=== PATIENT | male | born 1990 | race Caucasian/White ===

== ENCOUNTER 2016-09-17 23:42 | Emergency (ER) | payer OTHER ==
[2016-09-17 23:49] VITALS: BP 152/85
--- NOTE | 2016-09-18 00:19 | ED ---
Bite Injury/Animal - HPI Summary HPI Summary: 25M presents for potential rabies ppx. He states a couple days ago he walked into his house and say two bats that he managed to get out of the house without them touching him. Two days later he found an old bat in a different room that was not near his room. He denies getting any bites. His tetanus is up to date. He contacted the health department who told him to dispose of the bat as he did not need testing for rabies. - History of Current Complaint Chief Complaint: EDAnimalBite Stated Complaint: CONTACT WITH A BAT Time Seen by Provider: 09/17/16 23:59 Pain Intensity: 0 - Allergies/Home Medications Allergies/Adverse Reactions: Allergies Allergy/AdvReac Type Severity Reaction Status Date / Time No Known Allergies Allergy Verified 09/18/16 00:04 PMH/Surg Hx/FS Hx/Imm Hx Endocrine/Hematology History: Denies: Hx Anticoagulant Therapy Cardiovascular History: Denies: Hx Hypertension - Immunization History Date of Tetanus Vaccine: utd Date of Influenza Vaccine: none Infectious Disease History: No Infectious Disease History: Denies: Traveled Outside the [place] in Last 30 Days - Family History Known Family History: Positive: Cardiac Disease - Social History Alcohol Use: Occasionally Substance Use Type: Reports: None Smoking Status (MU): Never Smoked Tobacco Review of Systems Negative: Fever Negative: Chest Pain Negative: Shortness Of Breath Positive: Other - potential rabies exposure. Negative: Rash All Other Systems Reviewed And Are Negative: Yes Physical Exam Triage Information Reviewed: Yes Vital Signs On Initial Exam: Initial Vitals Temp Pulse Resp BP Pulse Ox 98.8 F 62 18 152/85 98 09/17/16 23:47 09/17/16 23:47 09/17/16 23:47 09/17/16 23:47 09/17/16 23:47 Vital Signs Reviewed: Yes Appearance: Positive: Well-Appearing Skin: Positive: Warm, Dry, Other - no wounds Head/Face: Positive: Normal Head/Face Inspection Eyes: Positive: Normal, Conjunctiva Clear Respiratory/Lung Sounds: Positive: Clear to Auscultation, Breath Sounds Present Cardiovascular: Positive: Normal, RRR - Yi Coma Scale Coma Scale Total: 15 Diagnostics - Vital Signs Vital Signs Temp Pulse Resp BP Pulse Ox 09/18/16 00:00 98.8 F 62 18 152/85 98 09/17/16 23:47 98.8 F 62 18 152/85 98 - Laboratory Lab Statement: Any lab studies that have been ordered have been reviewed, and results considered in the medical decision making process. Bite Injury Course/Dx - Course Course Of Treatment: 25M presents for potential rabies ppx. He states a couple days ago he walked into his house and say two bats that he managed to get out of the house without them touching him. Two days later he found an old bat in a different room that was not near his room. He denies getting any bites. His tetanus is up to date. explained being in the presence of a bat when awake does not necessity needing rabies ppx. patient understands and agrees with plan. - Diagnoses Differential Diagnosis/HQI/PQRI: Positive: Puncture, Rabies Exposure Provider Diagnosis: Exposure to bat without known bite Discharge - Discharge Plan Condition: Good Disposition: HOME Referrals: Pending Sale To [facility] [Primary Care Provider] - Additional Instructions: You do not need rabies prophylaxis Return to ED if develop any new or worsening symptoms
== END 2016-09-18 00:27 | disposition home or self-care (01) ==
LOC: ED 23:42
DX: Z20.3 Contact with and (suspected) exposure to rabies (principal)
CPT/HCPCS: 99281

== ENCOUNTER 2017-01-08 00:57 | Emergency (ER) | payer OTHER ==
[2017-01-08 06:03] LABS: Hematocrit 42 % (42-52); Hemoglobin 14.6 g/dl (14.0-18.0); Mean Corpuscular HGB Conc 35 g/dl (31-36); Mean Corpuscular Hemoglobin 31 pg (27-31); Mean Corpuscular Volume 89 fL (80-94); Mean Platelet Volume 8 um3 (7.4-10.4); Red Blood Count 4.67 10^6/ul (4.0-5.4); Red Cell Distribution Width 13 % (10.5-15)
[2017-01-08 06:14] LABS: Albumin 4.2 g/dL (3.2-5.2); BUN/Creatinine Ratio 14.3 (8-20); Calcium 8.4 mg/dL (8.6-10.3); EGFR Non-African American 110.5 (>60); Potassium 3.6 mmol/L (3.5-5.0); Total Bilirubin 1.1 mg/dL (0.2-1.0); Total Protein 6.2 g/dL (6.4-8.9)
--- NOTE | 2017-01-08 06:23 | ED ---
Ezio Beltran Alfonso, scribed for Oh Leija MD on 01/08/17 at 0511 . Dizziness - HPI Summary HPI Summary: This patient is a 26 year old M presenting to [facility] accompanied by friend with a chief complaint of intermittent lightheaded dizziness since 2100 yesterday. The patient rates the pain 1/10 in severity. Symptoms aggravated by nothing. Symptoms alleviated by spontaneous resolution. Patient reports nausea (resolved) , headache (resolved), bilateral LE tremors (resolved), and neck pain (with ROM) . Patient denies fever, ETOH use, vomiting, and cough. - History Of Current Complaint Chief Complaint: EDGeneral Stated Complaint: LIGHT HEADED/HEADACHE/NAUSEA Hx Obtained From: Patient Timing: Intermittent Episode Lasting Severity Currently: None Character: Lightheaded Aggravating Factor(s): Nothing Alleviating Factor(s): Other - Spontaneous resolution Associated Signs And Symptoms: Positive: Other: - nausea (resolved), headache ( resolved), bilateral LE tremors (resolved), and neck pain (with ROM). Patient denies fever, ETOH use, vomiting, and cough. - Allergies/Home Medications Allergies/Adverse Reactions: Allergies Allergy/AdvReac Type Severity Reaction Status Date / Time No Known Allergies Allergy Verified 01/08/17 01:03 PMH/Surg Hx/FS Hx/Imm Hx Endocrine/Hematology History: Denies: Hx Anticoagulant Therapy Cardiovascular History: Denies: Hx Hypertension Opthamlomology History: Denies: Hx Legally Blind EENT History: Denies: Hx Deafness - Immunization History Date of Tetanus Vaccine: utd Date of Influenza Vaccine: 01/07/17 Infectious Disease History: No Infectious Disease History: Denies: Traveled Outside the [place] in Last 30 Days - Family History Known Family History: Positive: Cardiac Disease - Social History Alcohol Use: Occasionally Hx Substance Use: No Substance Use Type: Reports: None Hx Tobacco Use: No Smoking Status (MU): Never Smoked Tobacco Review of Systems Positive: Other - bilateral LE tremors (resolved). Negative: Fever Negative: Cough Positive: Nausea. Negative: Vomiting Positive: Other - Neck pain Neurological: Other - Lightheaded dizziness; negative ETOH use Positive: Headache All Other Systems Reviewed And Are Negative: Yes Physical Exam - Summary Physical Exam Summary: Appearance: Well-appearing, Well-nourished Sin: Warm Eyes: Normal ENT: Normal Neck: Supple, nontender Respiratory: Clear to auscultation Cardiovascular: Normal Abdomen: Soft, nontender Bowel: Present Musculoskeletal: Normal, Strength/ROM Intact Neurological: Normal, A&Ox3 Psychiatric: Normal Triage Information Reviewed: Yes Vital Signs On Initial Exam: Initial Vitals Temp Pulse Resp BP Pulse Ox 99.7 F 119 16 128/70 96 01/08/17 01:00 01/08/17 01:00 01/08/17 01:00 01/08/17 01:00 01/08/17 01:00 Vital Signs Reviewed: Yes Diagnostics - Vital Signs Vital Signs Temp Pulse Resp BP Pulse Ox 01/08/17 04:30 100 109/56 96 01/08/17 04:04 101 95 01/08/17 04:03 109/56 01/08/17 03:27 100.4 F 91 12 115/67 97 01/08/17 01:00 99.7 F 119 16 128/70 96 - Laboratory Lab Results: Lab Results 01/08/17 01/08/17 01/08/17 Range/Units 05:40 05:40 06:04 WBC 6.0 (3.5-10.8) 10^3/ul RBC 4.67 (4.0-5.4) 10^6/ul Hgb 14.6 (14.0-18.0) g/dl Hct 42 (42-52) % MCV 89 (80-94) fL MCH 31 (27-31) pg MCHC 35 (31-36) g/dl RDW 13 (10.5-15) % Plt Count 173 (150-450) 10^3/ul MPV 8 (7.4-10.4) um3 Neut % (Auto) 89.9 H (38-83) % Lymph % (Auto) 3.6 L (25-47) % Crook % (Auto) 6.0 (1-9) % Eos % (Auto) 0.1 (0-6) % Baso % (Auto) 0.4 (0-2) % Absolute Neuts (auto) 5.4 (1.5-7.7) 10^3/ul Absolute Lymphs (auto) 0.2 L (1.0-4.8) 10^3/ul Absolute Monos (auto) 0.4 (0-0.8) 10^3/ul Absolute Eos (auto) 0 (0-0.6) 10^3/ul Absolute Basos (auto) 0 (0-0.2) 10^3/ul Absolute Nucleated RBC 0 10^3/ul Nucleated RBC % 0 Sodium 135 (133-145) mmol/L Potassium 3.6 (3.5-5.0) mmol/L Chloride 103 (101-111) mmol/L Carbon Dioxide 27 (22-32) mmol/L Anion Gap 5 (2-11) mmol/L BUN 12 (6-24) mg/dL Creatinine 0.84 (0.67-1.17) mg/dL Est GFR ( Amer) 142.0 (>60) Est GFR (Non-Af Amer) 110.5 (>60) BUN/Creatinine Ratio 14.3 (8-20) Glucose 122 H (70-100) mg/dL Calcium 8.4 L (8.6-10.3) mg/dL Total Bilirubin 1.10 H (0.2-1.0) mg/dL AST 12 L (13-39) U/L ALT 9 (7-52) U/L Alkaline Phosphatase 47 (34-104) U/L Total Protein 6.2 L (6.4-8.9) g/dL Albumin 4.2 (3.2-5.2) g/dL Globulin 2.0 (2-4) g/dL Albumin/Globulin Ratio 2.1 (1-3) Influenza A (Rapid) Negative (Negative) Influenza B (Rapid) Negative (Negative) Result Diagrams: 01/08/17 05:40 01/08/17 05:40 Lab Statement: Any lab studies that have been ordered have been reviewed, and results considered in the medical decision making process. Dizzy Course/Dx - Course Assessment/Plan: symptoms resolved without acute treatment, instruted to fu with pmd - Diagnoses Provider Diagnoses: Headache Discharge - Discharge Plan Condition: Improved Disposition: HOME Patient Education Materials: General Headache (ED) Referrals: [facility] - Lobo GALAN [Primary Care Provider] - Additional Instructions: PLEASE MAKE AN APPOINTMENT FIRST THING IN THE MORNING TO BE SEEN BY YOUR PRIMARY CARE DOCTOR WITHIN 1 WEEK PLEASE RETURN TO THE EMERGENCY ROOM IF YOU HAVE ANY WORSENING OR CONCERNING SYMPTOMS The documentation as recorded by the Ezio lucas Alfonso accurately reflects the service I personally performed and the decisions made by Liss pierce Dong, MD.
[2017-01-08 06:38] VITALS: BP 122/74
== END 2017-01-08 06:35 | disposition home or self-care (01) ==
LOC: ED 00:57
DX: R51 Headache (principal); R11.0 Nausea; M54.2 Cervicalgia
CPT/HCPCS: 36415; 80053; 85025; 87502; 99283

== ENCOUNTER 2017-01-28 22:31 | Emergency (ER) | payer OTHER ==
[2017-01-29 00:46] LABS: Hematocrit 42 % (42-52); Hemoglobin 15.1 g/dl (14.0-18.0); Mean Corpuscular HGB Conc 36 g/dl (31-36); Mean Corpuscular Hemoglobin 32 pg (27-31); Mean Corpuscular Volume 87 fL (80-94); Mean Platelet Volume 8 um3 (7.4-10.4); Red Blood Count 4.77 10^6/ul (4.0-5.4); Red Cell Distribution Width 12 % (10.5-15)
[2017-01-29 01:00] LABS: Magnesium 1.8 mg/dL (1.9-2.7)
[2017-01-29 01:02] LABS: Troponin I 0.01 ng/mL (<0.04)
[2017-01-29] MEDS ORDERED: LORazepam TAB(*) 1 MG PO ONE (01:04)
[2017-01-29 01:09] LABS: Comments Flag Yes
--- NOTE | 2017-01-29 01:10 | ED ---
Neurological HPI - HPI Summary HPI Summary: Patient presents to the ED with friends after experiencing parenthesias in all 4 extremities while sitting and watching a movie. He notes to similar episode in the past which he states had SOB and some chest pains. Today, he denies these but states he only became nervous and then become SOB immediately after for a short period of time. He denies dizziness, WORRELL. Last time this episode happened, he endorses WORRELL. Denies tremors. Patient states he felt stiff all over after wards. Denies ETOH or drug use. Denies fevers, sweats and chills. Denies abd pain, N/V/C/D. Denies significant health history. Incident tonight happened at 10:30 and symptoms had subsided by 11:05pm. Aggravated by nothing, relieved with spontaneous resolution. Denies history of anxiety. Previous note from [address] Leija: This patient is a 26 year old M [facility] accompanied by friend with a chief complaint of intermittent lightheaded dizziness since 2100 yesterday. The patient rates the pain 1/10 in severity. Symptoms aggravated by nothing. Symptoms alleviated by spontaneous resolution. Patient reports nausea (resolved) , headache (resolved), bilateral LE tremors (resolved), and neck pain (with ROM) . Patient denies fever, ETOH use, vomiting, and cough. - History of Current Complaint Chief Complaint: EDDizziness Stated Complaint: LIGHTHEADED Time Seen by Provider: 01/28/17 23:33 Hx Obtained From: Patient Onset/Duration: Sudden Onset Timing: Constant Onset Severity: Mild Current Severity: None Pain Intensity: 0 Pain Scale Used: 0-10 Numeric Character: Numbness/Tingling, Paresthesia Frequency: Episodes x___ - 1, Episodes Lasting ____ (in Mins/Days/Weeks/Years) - 45 min Alleviating: Rest - Allergy/Home Medications Allergies/Adverse Reactions: Allergies Allergy/AdvReac Type Severity Reaction Status Date / Time No Known Allergies Allergy Verified 01/08/17 01:03 PMH/Surg Hx/FS Hx/Imm Hx Previously Healthy: Yes Endocrine/Hematology History: Denies: Hx Anticoagulant Therapy Cardiovascular History: Denies: Hx Hypertension Sensory History: Denies: Hx Legally Blind, Hx Deafness Opthamlomology History: Denies: Hx Legally Blind - Immunization History Date of Tetanus Vaccine: utd Date of Influenza Vaccine: 12/2016 Hx Pertussis Vaccination: No Immunizations Up to Date: Yes Infectious Disease History: No Infectious Disease History: Denies: Traveled Outside the [place] in Last 30 Days - Family History Known Family History: Positive: Cardiac Disease - Social History Occupation: Student Lives: Dormitory/Roommates Alcohol Use: Rare Hx Substance Use: No Substance Use Type: Reports: None Hx Tobacco Use: No Smoking Status (MU): Never Smoked Tobacco Review of Systems Constitutional: Negative Negative: Fever, Chills, Fatigue Eyes: Negative Respiratory: Negative Gastrointestinal: Negative Genitourinary: Negative Positive: no symptoms reported, see HPI Musculoskeletal: Negative Positive: Paresthesia Psychological: Normal All Other Systems Reviewed And Are Negative: Yes Physical Exam Triage Information Reviewed: Yes Vital Signs On Initial Exam: Initial Vitals Temp Pulse Resp BP Pulse Ox 99.3 F 96 24 155/77 100 01/28/17 22:33 01/28/17 22:33 01/28/17 22:33 01/28/17 22:33 01/28/17 22:33 Vital Signs Reviewed: Yes Appearance: Positive: Well-Appearing, No Pain Distress, Well-Nourished Skin: Positive: Warm, Skin Color Reflects Adequate Perfusion Head/Face: Positive: Normal Head/Face Inspection Eyes: Positive: EOMI, EDOUARD, Conjunctiva Clear Neck: Positive: Supple, Nontender, No Lymphadenopathy Respiratory/Lung Sounds: Positive: Clear to Auscultation, Breath Sounds Present Cardiovascular: Positive: Normal, RRR, Pulses are Symmetrical in both Upper and Lower Extremities Musculoskeletal: Positive: Normal, Strength/ROM Intact Neurological: Positive: Sensory/Motor Intact, Alert, Oriented to Person Place, Time, CN Intact II-III, Reflexes Intact, Normal Gait, Heel to Toe, Finger to Nose, Speech Normal Psychiatric: Positive: Normal, Affect/Mood Appropriate AVPU Assessment: Alert - Yi Coma Scale Coma Scale Total: 15 Diagnostics - Vital Signs Vital Signs Temp Pulse Resp BP Pulse Ox 01/28/17 22:33 99.3 F 96 24 155/77 100 - Laboratory Lab Results: Lab Results 01/29/17 Range/Units 00:35 Glucose 138 H (70-100) mg/dL Magnesium 1.8 L (1.9-2.7) mg/dL Troponin I 0.01 (<0.04) ng/mL TSH Pending Result Diagrams: 01/29/17 00:35 Lab Statement: Any lab studies that have been ordered have been reviewed, and results considered in the medical decision making process. Course/Dx - Course Course Of Treatment: Patient evaluated for paressthesias in all 4 extremities which had resolved by the time he arrived to the hospital. He is concerned with intracranial pathology. Denies visual changes. On physical exam, neuro exam WNL. Lungs CTA. Chest equal expansion. Labs obtained and WNL. Brain CT normal. He is encouraged to follow up with cardiology or neurology if symptoms remain. I have discussed this is likely anxiety, but he denies this possibility. He is Ok with discharge and states he will follow up. - Differential Dx Differential Diagnoses Neuro: Positive: Transient Ischemic Attack - Diagnoses Provider Diagnoses: Paresthesia Discharge - Discharge Plan Condition: Stable Disposition: HOME Patient Education Materials: Paresthesia (ED) Referrals: [facility] - [facility] [Primary Care Provider] - Vinay Hough MD [Medical Doctor] - Kate Medrano MD [Medical Doctor] - Additional Instructions: Please follow up with PCP next week If symptoms return or worsen - please follow up with cardiology and neurology - however I recommend seeing your primary first if possible If you develop any chest pain, shortness of breath, visual changes - return to the ED
[2017-01-29 01:19] LABS: TSH (Thyroid Stimulating Horm) 1.74 mcIU/mL (0.34-5.60)
[2017-01-29 01:30] LABS: Benzodiazepine Urine Screen None Detected (None Detect)
[2017-01-29 02:06] VITALS: BP 135/74
[2017-01-29 02:34] LABS: Urine Bilirubin Negative (Negative); Urine Glucose Negative (Negative); Urine Nitrite Negative (Negative)
--- NOTE | 2017-01-29 08:35 | RAD ---
Indication: Headache, numbness and tingling. Similar episode 2 weeks ago. Comparison: No relevant prior exams available on the [facility] PACS for comparison. Technique: Noncontrast CT vertex of skull through foramen magnum. Report: The sulci, ventricles, and basal cisterns are normal for age. Mackenzie matter white matter differentiation is preserved without evidence for edema. No intra or extra axial hemorrhage, mass, or fluid collection detected. Unremarkable visualized orbital contents. Unremarkable calvarium and skull base. Unremarkable scalp. The visualized paranasal sinuses and mastoid air spaces are clear. IMPRESSION: Negative unenhanced head CT.
== END 2017-01-29 02:08 | disposition home or self-care (01) ==
LOC: ED 22:31
DX: R20.2 Paresthesia of skin (principal)
CPT/HCPCS: 36415; 70450; 80307; 81003; 82947; 83735; 84443; 84484; 85025; 93005; 99282

== ENCOUNTER 2017-01-29 15:44 | Emergency (ER) | payer OTHER ==
[2017-01-29] MEDS ORDERED: LORazepam TAB(*) 1 MG PO ONE (17:11)
[2017-01-29 17:31] LABS: Hematocrit 44 % (42-52); Hemoglobin 15.4 g/dl (14.0-18.0); Mean Corpuscular HGB Conc 35 g/dl (31-36); Mean Corpuscular Hemoglobin 31 pg (27-31); Mean Corpuscular Volume 88 fL (80-94); Mean Platelet Volume 8 um3 (7.4-10.4); Red Blood Count 4.94 10^6/ul (4.0-5.4); Red Cell Distribution Width 13 % (10.5-15); White Blood Count 5.2 10^3/ul (3.5-10.8)
[2017-01-29 17:43] LABS: Urine Bilirubin Negative (Negative); Urine Glucose Negative (Negative); Urine Nitrite Negative (Negative)
[2017-01-29 17:52] LABS: ALT 10 U/L (7-52); AST 13 U/L (13-39); Albumin 4.5 g/dL (3.2-5.2); Alkaline Phosphatase 68 U/L (34-104); Anion Gap 6 mmol/L (2-11); BUN/Creatinine Ratio 14.5 (8-20); Blood Urea Nitrogen 11 mg/dL (6-24); CO2 Carbon Dioxide 27 mmol/L (22-32); Calcium 8.9 mg/dL (8.6-10.3); Chloride 105 mmol/L (101-111); EGFR African American 159.4 (>60); Globulin 2.3 g/dL (2-4); Glucose 93 mg/dL (70-100); Potassium 3.8 mmol/L (3.5-5.0); Sodium 138 mmol/L (133-145); Total Protein 6.8 g/dL (6.4-8.9)
[2017-01-29 18:09] LABS: Benzodiazepine Urine Screen None Detected (None Detect)
[2017-01-29 18:26] LABS: Alcohol < 10 mg/dL (<10)
[2017-01-29 18:37] VITALS: BP 119/90
[2017-01-29 18:41] LABS: TSH (Thyroid Stimulating Horm) 1.65 mcIU/mL (0.34-5.60)
--- NOTE | 2017-01-30 16:42 | ED ---
Ezio Beltran Alfonso scribed for Varinder Jenkins MD on 01/29/17 at 1712 . Complex/Multi-Sys Presentation - HPI Summary HPI Summary: This patient is a 26 year old M presenting to [facility] accompanied by male friend with a chief complaint of bilateral feet and hand numbness since yesterday, worse since this morning. The patient rates the pain 0/10 in severity. Symptoms aggravated by nothing. Symptoms alleviated by nothing. Patient reports SOB, cough, palpitations, anxiety, and CP (like if you pulled a muscle). Patient denies fever, and N/V. - History Of Current Complaint Chief Complaint: EDGeneral Time Seen by Provider: 01/29/17 16:55 Hx Obtained From: Patient Onset/Duration: Gradual Onset, Lasting Days, Worse Since - morning Timing: Constant Aggravating Factor(s): nothing Alleviating Factor(s): nothing Associated Signs And Symptoms: Positive: Other - SOB, cough, palpitations, anxiety, and CP (like if you pulled a muscle). Patient denies fever, and N/V. - Allergies/Home Medications Allergies/Adverse Reactions: Allergies Allergy/AdvReac Type Severity Reaction Status Date / Time No Known Allergies Allergy Verified 01/08/17 01:03 PMH/Surg Hx/FS Hx/Imm Hx Endocrine/Hematology History: Denies: Hx Anticoagulant Therapy Cardiovascular History: Denies: Hx Hypertension Sensory History: Denies: Hx Legally Blind, Hx Deafness Opthamlomology History: Denies: Hx Legally Blind EENT History: Denies: Hx Deafness - Immunization History Date of Tetanus Vaccine: utd Date of Influenza Vaccine: 12/2016 Infectious Disease History: No Infectious Disease History: Denies: Traveled Outside the [place] in Last 30 Days - Family History Known Family History: Positive: Cardiac Disease - Social History Alcohol Use: Rare Hx Substance Use: No Substance Use Type: Reports: None Hx Tobacco Use: No Smoking Status (MU): Never Smoked Tobacco Review of Systems Negative: Fever Positive: Palpitations, Chest Pain Positive: Shortness Of Breath, Cough Negative: Vomiting, Nausea Neurological: Other - bilateral feet and hand numbness Positive: Anxious All Other Systems Reviewed And Are Negative: Yes Physical Exam - Summary Physical Exam Summary: VITAL SIGNS: Reviewed. GENERAL: Patient is a well-developed and nourished male who is lying comfortable in the stretcher. Patient is not in any acute respiratory distress. HEAD AND FACE: No signs of trauma. No ecchymosis, hematomas or skull depressions. No sinus tenderness. EYES: PERRLA, EOMI x 2, No injected conjunctiva, no nystagmus. EARS: Hearing grossly intact. Ear canals and tympanic membranes are within normal limits. MOUTH: Oropharynx within normal limits. NECK: Supple, trachea is midline, no adenopathy, no JVD, no carotid bruit, no c- spine tenderness, neck with full ROM. CHEST: Symmetric, no tenderness at palpation LUNGS: Clear to auscultation bilaterally. No wheezing or crackles. CVS: Regular rate and rhythm, S1 and S2 present, no murmurs or gallops appreciated. ABDOMEN: Soft, non-tender. No signs of distention. No rebound no guarding, and no masses palpated. Bowel sounds are normal. EXTREMITIES: FROM in all major joints, no edema, no cyanosis or clubbing. NEURO: Alert and oriented x 3. No acute neurological deficits. Speech is normal and follows commands. SKIN: Dry and warm Triage Information Reviewed: Yes Vital Signs On Initial Exam: Initial Vitals Temp Pulse Resp BP Pulse Ox 98.7 F 95 18 132/92 96 01/29/17 15:54 01/29/17 15:54 01/29/17 15:54 01/29/17 15:54 01/29/17 15:54 Vital Signs Reviewed: Yes - [place] Coma Scale Coma Scale Total: 15 Diagnostics - Vital Signs Vital Signs Temp Pulse Resp BP Pulse Ox 01/29/17 15:54 98.7 F 95 18 132/92 96 - Laboratory Result Diagrams: 01/29/17 17:20 01/29/17 17:20 Lab Statement: Any lab studies that have been ordered have been reviewed, and results considered in the medical decision making process. - EKG 1720 Cardiac Rate: NL EKG Rhythm: Sinus Rhythm - 79 BPM EKG Interpretation: No ST elevations EKG Comparison: No Significant Change - 01/29/17 00:15 Complex Multi-Symp Course/Dx Assessment/Plan: This patient is a 26 year old M presenting to [facility] accompanied by male friend with a chief complaint of bilateral feet and hand numbness since yesterday, worse since this morning. The patient rates the pain 0 /10 in severity. Symptoms aggravated by nothing. Symptoms alleviated by nothing. Patient reports SOB, cough, palpitations, anxiety, and CP (like if you pulled a muscle). Patient denies fever, and N/V. An EKG reveals Sinus Rhythm at [address] elevations and similar to 01/29/17 00:15. Test results with no significant abnormalities. I believe that the patients symptoms are secondary to anxiety. Patient will be discharged with prescription for Atarax and follow up from PCP. The patient is agreeable with this plan. The patient is hemodynamically stable, alert and oriented x3. - Diagnoses Provider Diagnoses: Anxiety Discharge - Discharge Plan Condition: Stable Disposition: HOME Prescriptions: hydrOXYzine HCL TAB* [Atarax 25 MG TAB*] 25 mg PO TID PRN #30 tab PRN Reason: Anxiety Patient Education Materials: Anxiety (ED) Referrals: [facility] - Lobo GALAN [Primary Care Provider] - 1 Week Additional Instructions: RETURN TO THE EMERGENCY DEPARTMENT FOR CHANGING OR WORSENING SYMPTOMS. The documentation as recorded by the Ezio lucas Alfonso accurately reflects the service I personally performed and the decisions made by me, Varinder Jenkins MD.
== END 2017-01-29 18:39 | disposition home or self-care (01) ==
LOC: ED 15:44
DX: F41.9 Anxiety disorder, unspecified (principal); R06.02 Shortness of breath; R05 Cough; R00.2 Palpitations; R07.9 Chest pain, unspecified
CPT/HCPCS: 36415; 80053; 80307; 80320; 81003; 84443; 85025; 93005; 99282; A9270-GY; G0480